=== PATIENT | female | born 1950 | race Caucasian/White ===

== ENCOUNTER 2023-12-11 15:02 | Outpatient (AMB) | payer MEDICARE, BC, SELFPAY ==
--- NOTE | 2023-12-11 15:38 | HO.NEPHOV_ITS ---
Vital Signs 12/11/23 15:39 Height 5 ft 1 in Weight 186 lb 6 oz BMI 35.2 BP 136/70 Blood Pressure Location Lt brachial Position Sitting Pulse 65 Pulse Source Pulse Oximeter Pulse Oximetry (%) 98 Oxygen Delivery Method Room Air Intake Visit Reasons: Continue Care RTANE PT/ Conf [employer] Manager Required: No Accompanied by: Self / Same As Patient Allergies No Known Allergies Allergy (Verified 12/11/23 15:41) HPI Comments Details: I had the pleasure of seeing Padmini in follow-up of her labile blood pressure. She checks her blood pressure at home now and then. It has been at goal. She is not a diabetic. She tries to maintain a low-sodium diet. She does not have any coronary artery disease, CVA, congestive heart failure, peripheral arterial disease, renal artery stenosis or renal dysfunction. She has no history of thyroid disorders. She denies orthostatic symptoms, headache, dysuria, hematuria. She does not take nonsteroidal anti-inflammatories on a regular basis. She has a history of UTI as a 6-year-old child and was admitted in the hospital at that time. Her renal functions have been normal. She had 24 hour ambulatory blood pressure done in the past which showed uncontrolled blood pressure that time and was initiated on ARB which has been keeping a blood pressure at goal. Currently she feels well. [facility] Medical History (Updated 12/12/23 @ 14:09 by Chip Stoddard MD) Depressive disorder Hypertension Anxiety Surgical History (Updated 12/11/23 @ 15:42 by Delores Colorado MA) S/P carpal tunnel release Family History (Updated 12/11/23 @ 15:42 by Delores Colorado MA) Sister Hypertension Social History (Updated 12/11/23 @ 15:43 by Delores Colorado MA) Alcohol intake: current Comment: On occasion Patient Tobacco Use Status: Never used Tobacco Review of Systems Const All systems reviewed & are unremarkable except as noted in HPI and below Physical Exam Vital Signs: Last Vital Signs Pulse 65 12/11/23 15:39 BP 136/70 12/11/23 15:39 Pulse Ox 98 12/11/23 15:39 Oxygen Delivery Method Room Air 12/11/23 15:39 BMI result Body Mass Index 35.2 Const General: comfortable and no acute distress Orientation/consciousness: patient oriented x3 HEENT Head: Yes normocephalic Mouth: Normal oral and palatal mucosa present Eyes EOM: EOMs intact bilaterally Neck Neck: Yes supple Resp Auscultation: clear to auscultation bilaterally Cardio Jugular venous distension: no JVD Rate: regular rate GI Palpation (GI): Soft to palpation Auscultation: normal bowel sounds General: Yes no CVA tenderness Back/Spine/Pelvis Back: no CVA tenderness Skin General skin exam: no rashes or lesions noted Neuro General: patient oriented x3 and moves all extremities Extrem General: Yes no pedal edema Results Reviewed Nephrology Results: No Data to Display Assessment & Plan Assessment & Plan (1) Hypertension: Code(s): I10 - Essential (primary) hypertension Category: Medical Qualifiers: Hypertension type: primary hypertension Qualified Code(s): I10 - Essential (primary) hypertension Plan Padmini had labile blood pressure but was diagnosed to have hypertension based on 24 hour ambulatory blood pressure monitor. Ever since she has been initiated on angiotensin receptor sakshi her blood pressure has been at goal. She could continue losartan 50 mg daily. All the workup done in the past rule out secondary etiology has been negative. She is not known to have any retinopathy, proteinuria, LVH or renal dysfunction. She should maintain a lose sodium diet and would benefit from some weight loss. She should avoid nonsteroidal anti- inflammatories and keep up with good hydration. I did not make any medication changes today. Follow-up lab work ordered. Follow-up appointment given for next year. Answered all questions. Orders: Orders Blood Urea Nitrogen 12/11/23 I10 - Essential (primary) hypertension Electrolytes 12/11/23 I10 - Essential (primary) hypertension Protein Creatinine Ratio, Ur 12/11/23 I10 - Essential (primary) hypertension Creatinine 12/11/23 I10 - Essential (primary) hypertension Coding Level of Care Code Est Pt Level 4 (10783) Diagnoses Primary hypertension I10 Hypertension type: primary hypertension
[2023-12-11 15:39] VITALS: BP 136/70; PULSE 65; O2SAT 98; BMI 35.2
== END 2023-12-11 16:03 | disposition home or self-care (01) ==
PROVIDERS: PCP Physician Assistant; Visit Provider Internal Medicine Nephrology
DX: I10 Essential (primary) hypertension (principal)
CPT/HCPCS: 99214

== ENCOUNTER → 2023-12-11 15:02 | Outpatient (BNVA) | payer MEDICARE, BC, SELFPAY | PROVIDERS: PCP Physician Assistant; Visit Provider Internal Medicine Nephrology | DX: I10 Essential (primary) hypertension (principal) | CPT/HCPCS: 99212 ==